=== PATIENT | male | born 1980 | race Two or more races ===

== ENCOUNTER 2019-11-01 02:31 | Emergency (ER) | payer MEDICAID ==
[~2019-11-01] VITALS: Ht 185.4 cm; Wt 104.3 kg
[2019-11-01 03:40] VITALS: BP 152/88
[2019-11-01 04:04] LABS: Amphetamine Screen, Urine NEGATIVE (NEGATIVE); Barbiturate Scree,Urine NEGATIVE (NEGATIVE); Benzodiazephine Screen, Urine NEGATIVE (NEGATIVE); Cannabinoid Screen, Urine NEGATIVE (NEGATIVE); Cocaine Screen, Urine NEGATIVE (NEGATIVE); Opiate Scree,Urine NEGATIVE (NEGATIVE); Phencyclidine Screen, Urine NEGATIVE (NEGATIVE)
== END 2019-11-01 05:49 | disposition left against medical advice (07) ==
LOC: EDBD 02:31 → ER 02:37
DX: S01.111A Laceration without foreign body of right eyelid and periocular area, initial encounter (principal); Z53.21 Procedure and treatment not carried out due to patient leaving prior to being seen by health care provider; X58.XXXA Exposure to other specified factors, initial encounter; Y93.89 Activity, other specified; Y92.89 Other specified places as the place of occurrence of the external cause; Y99.8 Other external cause status
CPT/HCPCS: 36415; 70450; 70486; 72125; 80307; 80320